=== PATIENT | female | born 1990 | race Asian ===

== ENCOUNTER 2022-08-31 08:14 | Emergency (ER) | payer BC ==
[~2022-08-31] VITALS: Ht 160 cm; Wt 64.9 kg
[2022-08-31 08:30] VITALS: BP_SYST 134
--- NOTE | 2022-08-31 08:30 | NUR ---
PT CAME IN TO ED BY SELF. ALERT, AWAKE [id number]; CHEIF COMPLAINT OF ABDOMINAL PAIN FOR 2 DAYS, PAIN IS IN LOWER RIGHT QUADRANT THAT RADIATES TO LOWER LEG. PAIN IS DULL AND 8/10 PAIN GRADIANT. PT HAS N/V , BLOATING, NO BM IN 2 DAYS BUT FEELS GASSY. PT HAS HX OF PCOS AND APPENDECTOMY. VSS PT SITTING UP RIGHT IN BED NO SIDE RAILS UP, BED IN LOW POSITION.
--- NOTE | 2022-08-31 08:34 | NUR ---
Patient to ER bed 7 to gown for evaluation. Side rails up. Report given to WENDY/KIMBERLEY MOTLEY.
--- NOTE | 2022-08-31 08:35 | NUR ---
ER at bedside examining patient.
[2022-08-31] MEDS ORDERED: KETOROLAC TROMETHAMINE 30 MG VIAL IVP ONE (08:45)
[2022-08-31] MEDS ORDERED: NACL 0.9% 1,000 ML IV ONE (08:45)
[2022-08-31 09:11] LABS: EOSINOPHILS # (AUTO) 0.1 K/uL (0.0-0.4); EOSINOPHILS % (AUTO) 1.8 % (0.0-4.0); HEMATOCRIT 39.4 % (36-48); HEMOGLOBIN 13.4 g/dL (12.0-16.0); LYMPHOCYTES % (AUTO) 41.4 % (20.5-51.5); MEAN CORPUSCULAR HEMOGLOBIN 30 pg (27-31); MEAN CORPUSCULAR HGB CONC 34 % (32-36); MEAN CORPUSCULAR VOLUME 89 fL (79.0-98.0); MONOCYTES # (AUTO) 0.6 K/uL (0.0-1.0); MONOCYTES % (AUTO) 11.7 % (1.7-9.3); NEUTROPHILS # (AUTO) 2.1 K/uL (1.8-7.7); NEUTROPHILS % (AUTO) 44.1 % (40.0-70.0); PLATELET COUNT (AUTO) 294 K/uL (130-430); RED BLOOD CELL COUNT(AUTO) 4.42 MIL/uL (4.2-6.2); RED CELL DISTRIBUTION WIDTH 13.2 % (9.0-15.0); WHITE BLOOD COUNT (AUTO) 4.8 K/uL (4.8-10.8)
[2022-08-31 09:17] LABS: BILIRUBIN,URINE NEGATIVE (NEGATIVE); BLOOD, URINE NEGATIVE (NEGATIVE); CLARITY/URINE CLEAR (CLEAR); COLOR,URINE YELLOW (YELLOW); GLUCOSE,URINE NEGATIVE (NEGATIVE); KETONES,URINE NEGATIVE (NEGATIVE); LEUKOCYTE ESTERASE ,URINE NEGATIVE (NEGATIVE); NITRITE, URINE NEGATIVE (NEGATIVE); PROTEIN URINE NEGATIVE (NEGATIVE); UROBILINOGEN,URINE 0.2 (0.2-1.0)
--- NOTE | 2022-08-31 09:25 | NUR ---
# 20 gauge angiocath placed to . Use of asceptic technique. Opsite placed over site. Blood return noted. Blood for lab drawn from site. Flushed with 10 cc of normal saline. No evidence of infiltration noted. Patient tolerated well.
[2022-08-31 09:27] LABS: CALCIUM 10.2 mg/dL (8.4-11.0); CREATININE 0.81 mg/dL (0.55-1.30)
--- NOTE | 2022-08-31 09:30 | NUR ---
URINE SPECIMEN COLLECTED, PT PROVIDED VAGINAL SPECIMEN FOR WET MOUNT. SPECIMENS TAKEN TO LAB.
[2022-08-31 09:32] LABS: ALBUMIN 4.5 g/dL (3.4-4.8); TOTAL BILIRUBIN 0.7 mg/dL (0.0-1.0)
--- NOTE | 2022-08-31 10:00 | NUR ---
DR LADD ordered change for infusion rate of sodium chloride 0.9% to be infused as bolus.
[2022-08-31] MEDS ORDERED: DOXY100C5 PO (11:07)
[2022-08-31 11:44] VITALS: BP_SYST 134
--- NOTE | 2022-08-31 11:47 | NUR ---
Patient given written and verbal discharge instructions and verbalizes understanding. ER MD discussed with patient the results and treatment provided. Patient in stable condition. ID arm band removed. Rx of doxycycline given. Patient educated on pain management and to follow up with PMD. Opportunity for questions provided and answered. Medication side effect fact sheet provided.
== END 2022-08-31 11:47 | disposition home or self-care (01) ==
LOC: SED 08:14
DX: N76.0 Acute vaginitis (principal); R10.31 Right lower quadrant pain; Z79.899 Other long term (current) drug therapy
CPT/HCPCS: 99285; 74176; 96374; 96361; 80053; 85025; 87210; 36415; 76376; 81003; J1885; J7030